=== PATIENT | female | born 1955 | race Two or more races ===

== ENCOUNTER 2022-10-02 18:58 | Emergency (ER) | payer OTHER ==
[~2022-10-02] VITALS: Ht 149.9 cm; Wt 60.0 kg
[~2022-10-02 18:58] MED LIST: AMLO-257 PO; ASPI81TA87 PO; CARV3 PO; FURO20 PO; Isosorb Dinit/Hydralazine Hcl PO; LEVO50 PO; PHOSLOC PO; PRAV20TA PO
[2022-10-02 19:16] VITALS: BP 162/82
[2022-10-02] MEDS ORDERED: BACITRACIN 0.9 GM PACKET OINTMENT TP ONE (19:30)
[2022-10-02] MEDS ORDERED: PERTUSS(ACELL),DIPH,TET VAC/PF 0.5 ML SYRINGE IM. ONE (19:30)
== END 2022-10-02 19:44 | disposition home or self-care (01) ==
LOC: EMS 18:59
DX: S61.212A Laceration without foreign body of right middle finger without damage to nail, initial encounter (principal); E11.22 Type 2 diabetes mellitus with diabetic chronic kidney disease; I12.0 Hypertensive chronic kidney disease with stage 5 chronic kidney disease or end stage renal disease; N18.6 End stage renal disease; E78.00 Pure hypercholesterolemia, unspecified; E03.9 Hypothyroidism, unspecified; Z98.890 Other specified postprocedural states; Z99.2 Dependence on renal dialysis; W45.8XXA Other foreign body or object entering through skin, initial encounter; Y93.89 Activity, other specified; Y92.89 Other specified places as the place of occurrence of the external cause; Y99.8 Other external cause status
CPT/HCPCS: 82962; 90471; 90715; 99283

== ENCOUNTER 2022-11-11 17:59 | Emergency (ER) | payer OTHER ==
[~2022-11-11] VITALS: Ht 147.3 cm; Wt 72.7 kg
[2022-11-11] MEDS ORDERED: ACETAMINOPHEN 325 MG TABLET PO ONE ×2 (21:00→23:00)
[2022-11-11 22:54] VITALS: BP 170/80
== END 2022-11-11 22:59 | disposition home or self-care (01) ==
LOC: EMS 18:02
DX: M79.671 Pain in right foot (principal); E11.22 Type 2 diabetes mellitus with diabetic chronic kidney disease; I12.0 Hypertensive chronic kidney disease with stage 5 chronic kidney disease or end stage renal disease; N18.6 End stage renal disease; E78.00 Pure hypercholesterolemia, unspecified; E03.9 Hypothyroidism, unspecified; Z99.2 Dependence on renal dialysis; Z98.890 Other specified postprocedural states
CPT/HCPCS: 82962; 99283